=== PATIENT | female | born 1970 | race Caucasian/White ===

== ENCOUNTER 2020-09-06 21:53 | Emergency (ER) | payer SELFPAY ==
[~2020-09-06] VITALS: Ht 160 cm; Wt 77.1 kg
--- NOTE | 2020-09-06 21:56 | NUR ---
CALLED PT TO BE TRIAGED, NOT IN WAITING ROOM. WILL FOLLOW UP
--- NOTE | 2020-09-06 22:11 | NUR ---
BIBS FROM HOME TO ER BED 2. AAOX4. NOT IN RESP DISTRESS, BREATHING EVEN AND UNLABPRED. AMBULATORY. CAME IN FOR ELEVATED BP WHICH SHE NOTED TODAY. PT IS HAVING A HEADACHE THAT IS WHY SHE CHECKED HER BP AND NOTED SBP 190. UPON TRIAGE PT WAS NOTED WITH BP OF 196/92. IS ATB BEDSIDE FOR EVAL. AWAITING ORDERS
[2020-09-06] MEDS ORDERED: CLONIDINE HCL 0.1 MG TABLET ONE (22:21)
[2020-09-06] MEDS ORDERED: CLONIDINE HCL 0.1 MG TABLET PO ONE (22:30)
[2020-09-06 23:02] LABS: BILIRUBIN,URINE Negative (NEGATIVE); BLOOD, URINE Trace-lysed Ery/uL (NEGATIVE); COLOR,URINE YELLOW (YELLOW); LEUKOCYTE ESTERASE ,URINE Negative (NEGATIVE); NITRITE, URINE Negative (NEGATIVE); PROTEIN,URINE Negative (NEGATIVE); UGLUCOSE Negative (NEGATIVE); UROBILINOGEN,URINE 0.2 EU/dL (0.2)
[2020-09-06 23:23] LABS: BACTERIA,URINE None seen /HPF (None Seen); SQUAMOUS EPITHELIAL CELL,UR Few /HPF (None Seen); WBC,URINE 0-2 /HPF (0-3)
[2020-09-06 23:24] LABS: URINE AMORPHOUS URATE Few /HPF (None Seen)
[2020-09-06 23:26] VITALS: BP 155/96
--- NOTE | 2020-09-06 23:26 | NUR ---
Patient discharged to home in stable condition. Written and verbal after care instructions given. Patient verbalizes understanding of instruction.
== END 2020-09-06 23:26 | disposition home or self-care (01) ==
LOC: ER 21:59
DX: R03.0 Elevated blood-pressure reading, without diagnosis of hypertension (principal); R94.31 Abnormal electrocardiogram [ECG] [EKG]
CPT/HCPCS: 81001